=== PATIENT | male | born 1990 | race Caucasian/White ===

== ENCOUNTER 2021-02-11 18:04 | Emergency (ER) | payer MEDICARE, OTHER ==
[~2021-02-11 18:04] MED LIST: CATAPRES0.2 MG PO; FOLIC ACID 1 MG1 MG PO; HYDRALAZINE HCL50 MG PO; NORVASC10 MG PO; PHOSLO 667 MG667 MG PO; ROCALTROL CA0.25 MCG PO
[2021-02-11 19:22] LABS: HEMOGLOBIN 10.5 gm/dl (14.0-17.5); RED BLOOD COUNT 3.31 M/UL (4.20-5.50); WHITE BLOOD COUNT 2.3 K/UL (4.5-11.0)
== END 2021-02-11 18:47 | disposition home or self-care (01) ==
LOC: ER1 18:04
PROVIDERS: Physician Assistant
DX: U07.1 COVID-19 (principal); R09.02 Hypoxemia; I12.0 Hypertensive chronic kidney disease with stage 5 chronic kidney disease or end stage renal disease; N18.6 End stage renal disease; Z99.2 Dependence on renal dialysis
CPT/HCPCS: 36600; 71045; 80053; 82550; 82553; 82803; 83605; 83615; 83874; 84484; 85025; 93005; 99284